=== PATIENT | female | born 1940 | race Hispanic/Latino ===

== ENCOUNTER 2025-04-01 08:51 | Day surgery (SDC) | payer MEDICARE ==
[2025-04-01] VITALS (11 sets, daily range): BP systolic 83–146; BP diastolic 48–73; PULSE 58–72; RESP 16–18; TEMP 97–97.6
[~2025-04-01] VITALS: Ht 162.6 cm; Wt 59.0 kg
[~2025-04-01 08:51] MED LIST: 0.9%NACL 1000ML 1,000 ML IV ONE
[2025-04-01] MEDS ORDERED: TAMS-55 PO (10:54)
[2025-04-01] MEDS ORDERED: ATOR40TA69 PO (10:54)
[2025-04-01] MEDS ORDERED: BRIM5DRO21 OP (10:54)
[2025-04-01] MEDS ORDERED: DORZ10DR10 OP (10:54)
[2025-04-01] MEDS ORDERED: CARB1TAB35 PO (10:54)
[2025-04-01] MEDS ORDERED: LOSA50TA64 PO (10:54)
[2025-04-01] MEDS ORDERED: GABA-529 PO (10:54)
[2025-04-01] MEDS: 0.9%NACL 1000ML 1,000 ML IV ONE (10:56)
== END 2025-04-01 12:47 | disposition home or self-care (01) ==
LOC: DAH 08:51
PROVIDERS: ATTEND Internal Medicine Gastroenterology
DX: R63.4 Abnormal weight loss (principal); K29.50 Unspecified chronic gastritis without bleeding; R63.30 Feeding difficulties, unspecified; R63.0 Anorexia; K62.7 Radiation proctitis; N18.30 Chronic kidney disease, stage 3 unspecified; G20.C Parkinsonism, unspecified; J44.9 Chronic obstructive pulmonary disease, unspecified; Z79.82 Long term (current) use of aspirin; Z79.899 Other long term (current) drug therapy
CPT/HCPCS: 43239; J7030 ×2; J2704; A4620; A4215; A4223; A7002; A4222; A4221; A4663; A4606; J3490